=== PATIENT | female | born 1965 | race African-American/Black ===

== ENCOUNTER 2016-10-16 17:32 | Emergency (ER) | payer MEDICAID ==
[~2016-10-16 17:32] MED LIST: ACETAMINOPHEN500 M4 PO; ACTOS15 MG; ACTOS45 MG PO; ADULT LOW DOSE81 M1 PO; AMARYL1 MG PO; AMOX TR-K CLV1 EAC4 PO; AMOXICILLIN875 MG PO; ASPIR 8181 MG; ASPIR-LOW81 MG PO; ASPIRIN325 M3 PO; ASPIRIN81 MG PO; AUGMENTIN875 MG/TA1 PO; CHROMIUM200 MCG; CINNAMON; CYCLOBENZAPRINE5 M1 PO; DULCOLAX10 MG PR; DULCOLAX5 M1 PO; FLEXERIL10 MG PO; FLUOXETINE HCL20 MG PO; FLUOXETINE HCL40 M1 PO; GLIPIZIDE5 MG PO; GLUCOPHAGE1000 M1 PO; GLUCOPHAGE1000 MG PO; GLUCOPHAGE500 MG; GLUCOPHAGE500 MG/TAB PO; HYDROCHLOROTH12.5 MG PO; HYDROCHLOROTHIA25 M1 PO; IBUPROFEN200 M1 PO; IBUPROFEN200 M3 PO; KLOR-CON 1010 MEQ PO; KLOR-CON M1010 MEQ; KLOR-CON M2020 MEQ PO; LEVOTHYROXINE150 MC3 PO; LEVOTHYROXINE175 MC2 PO; LEVOTHYROXINE175 MCG PO; LISINOPRIL; LISINOPRIL10 MG PO; LISINOPRIL30 MG PO; LISINOPRIL5 MG; LISINOPRIL5 MG PO; LOSARTAN POTASS25 M1 PO; LOSARTAN POTASS50 MG PO; MAXZIDE-25 MG1 UDTAB; MAXZIDE1 TA2 PO; MELOXICAM15 M1 PO; MELOXICAM7.5 MG PO; METFORMIN HCL1000 M2 PO; METFORMIN HCL1000 MG PO; METFORMIN HCL500; METFORMIN HCL500 MG PO; MILK OF MAGNESIA PO; MOBIC15 M1 PO; MOTRIN600 MG PO; MULTIVITAMIN1 TAB PO; NAPROSYN500 MG PO; NORCO 5/325 TAB1 TAB PO; OMEPRAZOLE20 M2 PO; OMEPRAZOLE20 M3 PO; PERCOCET 5-3251 EACH PO; PHENERGAN W/CO120 M1 PO; PRILOSEC OTC20 MG PO; PRILOSEC20 MG; PRILOSEC20 MG PO; PROCTOFOAM-HC F10 G1 RC; PROMETHAZINE12.5 M2 PO; PROZAC20 M3 PO; PROZAC40 MG PO; RANITIDINE HCL150 M3 PO; ROBAXIN500 MG PO; SENOKOT-S TABL1 EACH PO; SIMVASTATIN; SIMVASTATIN40 MG PO; SIMVASTATIN5 MG PO; SKELAXIN800 MG PO; SUCRALFATE1 GM PO; SYNTHROID125 MC1; SYNTHROID125 MCG; SYNTHROID125 MCG PO; SYNTHROID150 MCG PO; TESSALON200 MG PO; TOVIAZ4 MG PO; TRAMADOL HCL50 MG PO; TRAZODONE100 MG PO; TRIAMTERENE-HCT1 TAB PO; ULTRAM50 M1 PO; VESICARE10 MG; VESICARE10 MG PO; VESICARE5 MG; VITAMIN C PO; ZANAFLEX4 M2 PO; ZANTAC 7575 MG PO; ZANTAC150 M1 PO; ZANTAC150 MG PO; ZESTORETIC 20-1 EAC1 PO; ZESTRIL10 MG PO; ZOCOR20 MG; ZOCOR20 MG PO; ZYRTEC1010 PO; [UNRECOGNIZED DRUG - OTHER] PO
[2016-10-16] MEDS ORDERED: OMEPRAZOLE40 M2 PO (18:13)
[2016-10-16] MEDS ORDERED: ASPIRIN81 M1 PO (18:13)
[2017-02-17] MEDS ORDERED: 24HOUR ALLERGY10 MG PO (10:42)
== END 2016-10-16 19:44 ==
LOC: EDMED 17:32
DX: M25.562 Pain in left knee (principal); E11.9 Type 2 diabetes mellitus without complications; I10 Essential (primary) hypertension; K21.9 Gastro-esophageal reflux disease without esophagitis; E03.9 Hypothyroidism, unspecified; M19.90 Unspecified osteoarthritis, unspecified site; Z90.49 Acquired absence of other specified parts of digestive tract; Z90.710 Acquired absence of both cervix and uterus; Z79.82 Long term (current) use of aspirin; Z88.8 Allergy status to other drugs, medicaments and biological substances